=== PATIENT | female | born 1970 | race Caucasian/White ===

== ENCOUNTER 2020-10-02 17:48 | Outpatient (CLI) | payer BC, OTHER, SELFPAY ==
--- NOTE | ~2020-10-02 | MM_ITS ---
EXAMINATION: MM screening gilda BI w irvin HISTORY: Screening mammogram TECHNIQUE: Craniocaudal and mediolateral oblique 3-D tomosynthesis images were obtained and synthetic 2-D images were generated. CAD analysis was submitted and interpreted. COMPARISON: 05/29/2010 BREAST PARENCHYMAL COMPOSITION: There are scattered areas of fibroglandular density. FINDINGS: There is no evidence of suspicious mass, calcification, or architectural distortion to sugg est malignancy in either breast. There has been no suspicious interval change. IMPRESSION: 1. No mammographic evidence of malignancy. 2. Recommend routine screening mammography in one year. BI-RADS Category 1: Negative Reviewed, dictated and finalized at location A.
== END 2020-10-02 17:49 | disposition home or self-care (01) ==
LOC: ANHIMG 17:52
PROVIDERS: PCP Student in an Organized Health Care Education/Training Program; Visit Provider Student in an Organized Health Care Education/Training Program
DX: Z12.31 Encounter for screening mammogram for malignant neoplasm of breast (principal)
CPT/HCPCS: 77063; 77067

== ENCOUNTER 2020-12-14 15:39 | Outpatient (CLI) | payer OTHER, MEDICAID, SELFPAY ==
--- NOTE | ~2020-12-14 | US_ITS ---
EXAMINATION: US abdomen limited EXAM DATE: 12/14/2020 16:38 INDICATION: Elevated liver enzymes. TECHNIQUE: Multiple grayscale and Doppler images of the abdomen right upper quadrant were obtained (constantine y a technologist who performed the scan) and subsequently reviewed. There is no prior study for lisandro tejada. FINDINGS: The pancreatic head and body are normal in appearance. The pancreatic tail is not visualized. The l iver has normal echogenicity and contour. There are no focal liver lesions identified. There is no evidence of intrahepatic biliary duct dilation. Portal venous flow was seen in the hepatopedal, nor mal direction and has normal Doppler waveform. No right-sided hydronephrosis. Common bile duct measures 3 mm, which is normal. The gallbladder fossa is unremarkable. IMPRESSION: Unremarkable abdominal ultrasound exam. Reviewed, dictated and finalized at location A.
--- NOTE | ~2020-12-14 | US_ITS ---
EXAMINATION: US thyroid EXAM DATE: 12/14/2020 16:38 INDICATION: Postoperative hypothyroidism. TECHNIQUE: Multiple grayscale and Doppler images of the thyroid, thyroidectomy bed were obtained (by a technologist who performed the scan) and subsequently reviewed. Individual nodules and recommendat ions may be reported in accordance with TI-RADS system as designated by the 2017 ACR White Paper TI-R ADS committee. There is no prior study for comparison. FINDINGS: The left thyroid lobe measures 2.2 x 1.1 x 0.8 cm, small. This has diffusely heterogeneous and mildly hypervascular echotexture. The right thyroid lobe is not identified. Unremarkable thyroidectomy bed, now mass or lymphadenopathy identified. IMPRESSION: Small, mildly hypervascular left thyroid lobe. Reviewed, dictated and finalized at location A.
== END 2020-12-14 15:40 | disposition home or self-care (01) ==
LOC: ANHIMG 15:45
PROVIDERS: PCP Student in an Organized Health Care Education/Training Program; Visit Provider Student in an Organized Health Care Education/Training Program
DX: E89.0 Postprocedural hypothyroidism (principal); R74.8 Abnormal levels of other serum enzymes
CPT/HCPCS: 76536; 76705

== ENCOUNTER 2022-07-22 12:16 | Emergency (ER) | payer OTHER, MEDICAID, SELFPAY ==
[2022-07-22] VITALS (23 sets, daily range): BP systolic 125–159; BP diastolic 77–136; PULSE 66–78; RESP 16–17; TEMP 36.4; O2SAT 96–100
--- NOTE | 2022-07-22 12:47 | PC.NURSE ---
Dr. Pop at bedside to assess pt.
--- NOTE | 2022-07-22 12:52 | ED.FEMALEGU ---
HPI - Female Genitourinary General Chief complaint: Urogenital-Female Stated complaint: blood in urine, flank pain Time Seen by Provider: 07/22/22 12:20 History of Present Illness HPI Narrative: Patient is a 52-year-old female with a history of hypertension, hyperlipidemia, CAD, COPD presenting with dark urine. Patient states that she was at another ER 2 days ago and she was diagnosed with a kidney stone. She went home with Vicodin, Zofran, Flomax. States that she has been doing well on these. States that she called her doctor today because her urine appeared orange and they advised that she come back to the ER. States that her pain is currently decently controlled and she has not taken a Vicodin yet today. Denies nausea or vomiting. States that she is working on getting an appointment with a urologist but they are waiting for a referral from her PCP. Other than dark urine, she denies complaints. No fevers or chills, chest pain, shortness of breath, abdominal pain, vomiting, diarrhea, dysuria, leg swelling. Related Data Allergies Allergy/AdvReac Type Severity Reaction Status Date / Time trimethobenzamide Allergy Unknown Hives Verified 07/22/22 12:31 Review of Systems Review of Systems: All systems reviewed & are unremarkable except as noted in HPI and below Exam Narrative: GENERAL: Well-appearing, well-nourished, and in no acute distress. HEAD: Normocephalic, atraumatic. EYES: PERRLA and EOMI. ENT: Nares clear, no rhinorrhea or epistaxis. Mucous membranes moist. NECK: Supple. CHEST: Clear to auscultation. No respiratory distress. HEART: Regular rate and rhythm. ABDOMEN: Soft, nontender, nondistended EXTREMITIES: Normal range of motion. No edema. SKIN: Warm, dry, no rash. NEURO: No focal deficits. Alert and oriented x3. PSYCH: Normal mood and affect. Course Vital Signs Vital signs: Vital Signs Temperature 97.5 F L 07/22/22 12:17 Pulse Rate 66 07/22/22 12:17 Respiratory Rate 17 07/22/22 12:17 Blood Pressure 146/87 H 07/22/22 12:17 Pulse Oximetry 100 07/22/22 12:17 Oxygen Delivery Room Air 07/22/22 12:17 Temperature 97.5 F L 07/22/22 12:17 Pulse Rate 78 07/22/22 15:16 Respiratory Rate 16 07/22/22 15:16 Blood Pressure 144/95 H 07/22/22 15:16 Pulse Oximetry 99 07/22/22 15:16 Oxygen Delivery Room Air 07/22/22 12:17 MDM - Female Genitourinary MDM Narrative Medical decision making narrative: Patient is a 52-year-old female presenting with dark urine in the setting of recent kidney stone diagnosis. Patient is a bit hypertensive, otherwise vitals are within normal limits. Exam is unremarkable. No tenderness. States that her pain is decently controlled and she has not had to take a Vicodin yet today. We will check some labs and UA. Blood work is unremarkable. Renal function is normal. UA with greater than 100 RBCs as expected in the setting of a known ureteral calculus. There is no evidence of infection. On reevaluation, the patient is resting comfortably. Discussed the reassuring work-up. Advised that she follow-up as already planned with urology as well as her PCP. Patient will also follow-up with a liver specialist regarding her transaminitis that was noted several days ago and appears to be stable. Appropriate return precautions given. Discharged in stable condition. Differential Diagnosis Differential diagnosis: Likely urinary tract infection, cystitis and other (ureterolithiasis ) Medical Records Attestation: I reviewed the patient's medical records. Lab Data Attestation: I reviewed the patient's lab results. 07/22/22 12:47 07/22/22 12:47 Labs: Lab Results 07/22/22 Range/Units 12:47 WBC 6.4 (4.5-10.0) K/mm3 RBC 4.86 (4.2-5.4) M/mm3 Hgb 14.4 (12.0-15.0) g/dL Hct 43.4 (37.0-47.0) % MCV 89.3 (80-100) fl MCH 29.6 (26-34) pg MCHC 33.2 (32-36) g/dl RDW 13.8 (11.5-14.5) % Plt Count 214 (150-375)
[2022-07-22 12:56] LABS: Basophils Absolute Auto 0.1 K/mm3 (0.0-0.1); Basophils Percent Auto 1.1 % (0.2-1.2); Eosinophils Absolute Auto 0.4 K/mm3 (0-0.3); Eosinophils Percent Auto 6.3 % (0-4.4); Hematocrit 43.4 % (37.0-47.0); Hemoglobin 14.4 g/dL (12.0-15.0); Immature Granulocyte Absolute 0.02 K/mm3 (0.00-0.031); Immature Granulocyte Percent A 0.3 % (0-0.5); Lymphocytes Absolute Auto 1.63 K/mm3 (0.9-3.2); Lymphocytes Percent Auto 25.6 % (18.3-44.2); Mean Corpuscular HGB Conc 33.2 g/dl (32-36); Mean Corpuscular Hemoglobin 29.6 pg (26-34); Mean Corpuscular Volume 89.3 fl (80-100); Mean Platelet Volume 10.1 fl (7.4-10.4); Monocytes Absolute Auto 0.6 K/mm3 (0.1-0.6); Monocytes Percent Auto 9.1 % (2.6-8.5); Neutrophils Absolute Auto 3.7 K/mm3 (1.3-6.7); Neutrophils Percent Auto 57.6 % (45.5-73.1); Platelet Count Result 214 k/mm3 (150-375); Red Blood Count 4.86 M/mm3 (4.2-5.4); Red Cell Distribution Width 13.8 % (11.5-14.5); White Blood Count 6.4 K/mm3 (4.5-10.0)
[2022-07-22 13:03] LABS: Appearance Urine Clear (Clear); Bacteria Urine None Seen /hpf; Bilirubin Urine Negative (Negative); Blood Urine 3+ (Negative); Color Urine Yellow (Yellow); Glucose Urine UA Negative (Negative); Ketones Urine Negative (Negative); Leukocyte Esterase Ur Trace LEU/UL (Negative); Nitrate Urine Negative (Negative); Non Pathogenic Casts 0-2; Protein Urine Negative (Negative); RBC Urine >100 /hpf (0-2); Specific Grav Ur 1.008 (1.001-1.035); Squamous Epithelial Cell Urine None seen /hpf (Few); Urobilinogen Urine 0.2 mg/dL (<2.0); WBC Urine 0-5 /hpf; pH Urine 5.5 (5.0-9.0)
[2022-07-22 13:05] LABS: Alanine Aminotransferase 470 U/L (6-35); Albumin Level 4.3 g/dL (3.5-5.1); Alkaline Phosphatase 166 U/L (38-126); Anion Gap 6 mmol/L (8-16); Aspartate Amino Transferase 559 U/L (14-36); Blood Urea Nitrogen 14 mg/dL (7-17); Calcium 9.1 mg/dL (8.4-10.2); Carbon Dioxide 27 mmol/L (22-30); Chloride 103 mmol/L (98-107); Estimated CRCL calculation 66 ml/min; Estimated Glomerular Filt Rate 58; Glucose 85 mg/dL (65-110); Potassium 4.1 mmol/L (3.4-5.0); Sodium 136 mmol/L (137-145)
[2022-07-22 13:09] LABS: Add Urine Microscopic? YES
[2022-07-22] MEDS: MORPHINE SULFATE (*CRX) 4 MG/ML INJ IV PUSH (13:14)
[2022-07-22] MEDS: SODIUM CHLORIDE 0.9% IV 1,000 ML 999 ML IV CONT ×2 (13:14)
== END 2022-07-22 15:30 | disposition home or self-care (01) ==
PROVIDERS: Emergency Provider Emergency Medicine; PCP Student in an Organized Health Care Education/Training Program
DX: N20.1 Calculus of ureter (principal); I25.10 Atherosclerotic heart disease of native coronary artery without angina pectoris; I10 Essential (primary) hypertension; J44.9 Chronic obstructive pulmonary disease, unspecified; E78.5 Hyperlipidemia, unspecified
CPT/HCPCS: 36415; 80053; 81001; 85025; 96361; 96374; 99284; J2270; J7030

== ENCOUNTER 2022-09-24 23:12 | Observation (INO) | payer OTHER, MEDICAID, SELFPAY ==
--- NOTE | 2022-09-24 | ECG_ITS ---
Measurements Intervals [place] Rate: 57 P: 42 SC: 172 QRS: -21 QRSD: 90 T: 22 QT: 428 QTc: 417 Interpretive Statements SINUS BRADYCARDIA VOLTAGE CRITERIA FOR LVH [MEETS CRITERIA IN ONE OF: R(aVL), S(V1), R(V5), R(V5/V6)+S(V1)] POOR R-WAVE PROGRESSION ABNORMAL ECG NO PREVIOUS ECG AVAILABLE FOR COMPARISON Electronically Signed On 09-25-2022 13:14:00 CDT by Hector Cantu M.D.
--- NOTE | ~2022-09-24 | XR_ITS ---
EXAMINATION: XR chest 1V portable DATE: 09/24/2022 23:47 INDICATION: Chest pain. TECHNIQUE: A single frontal view of the chest was obtained. COMPARISON: Chest 2 views 01/08/2018 FINDINGS: There is no pneumonia, pleural effusion, or pneumothorax. The heart size is normal. A forei gn body that is likely an implant overlies the heart. IMPRESSION: 1. No acute cardiopulmonary disease. Reviewed, dictated and finalized at location A.
[2022-09-24 23:13] VITALS: BP 124/68; PULSE 59; RESP 15; TEMP 36.5; O2SAT 100
[2022-09-24 23:31] VITALS: BP 110/73; PULSE 61; RESP 18; O2SAT 100
[2022-09-24] MEDS: NITROGLYCERIN SL 0.4 MG TABLET SUBLINGUAL (23:43)
[2022-09-24 23:56] LABS: Basophils Absolute Auto 0.1 K/mm3 (0.0-0.1); Basophils Percent Auto 0.7 % (0.2-1.2); Eosinophils Absolute Auto 0.6 K/mm3 (0-0.3); Eosinophils Percent Auto 5.9 % (0-4.4); Hematocrit 39.4 % (37.0-47.0); Hemoglobin 13.3 g/dL (12.0-15.0); Immature Granulocyte Absolute 0.04 K/mm3 (0.00-0.031); Immature Granulocyte Percent A 0.4 % (0-0.5); Lymphocytes Absolute Auto 2.33 K/mm3 (0.9-3.2); Lymphocytes Percent Auto 22.4 % (18.3-44.2); Mean Corpuscular HGB Conc 33.8 g/dl (32-36); Mean Corpuscular Hemoglobin 31.3 pg (26-34); Mean Corpuscular Volume 92.7 fl (80-100); Mean Platelet Volume 9.8 fl (7.4-10.4); Monocytes Percent Auto 9.8 % (2.6-8.5); Neutrophils Absolute Auto 6.4 K/mm3 (1.3-6.7); Neutrophils Percent Auto 60.8 % (45.5-73.1); Platelet Count Result 219 k/mm3 (150-375); Red Blood Count 4.25 M/mm3 (4.2-5.4); Red Cell Distribution Width 12.9 % (11.5-14.5); White Blood Count 10.4 K/mm3 (4.5-10.0)
[2022-09-25] VITALS (13 sets, daily range): BP systolic 106–126; BP diastolic 57–81; PULSE 48–60; RESP 13–20; TEMP 36.6–36.7; O2SAT 97–100; BMI 36.3
[2022-09-25 00:05] LABS: Lipase 83 U/L (23-300); Magnesium 1.9 mg/dL (1.6-2.3)
[2022-09-25 00:06] LABS: Alanine Aminotransferase 50 U/L (6-35); Albumin Level 3.6 g/dL (3.5-5.1); Alkaline Phosphatase 85 U/L (38-126); Anion Gap 1 mmol/L (8-16); Aspartate Amino Transferase 83 U/L (14-36); Bilirubin,Total 0.9 mg/dL (0.2-1.3); Blood Urea Nitrogen 13 mg/dL (7-17); Carbon Dioxide 28 mmol/L (22-30); Chloride 103 mmol/L (98-107); Estimated CRCL calculation 71 ml/min; Estimated Glomerular Filt Rate > 60; Glucose 92 mg/dL (65-110); Potassium 3.4 mmol/L (3.4-5.0); Sodium 132 mmol/L (137-145)
[2022-09-25 00:13] LABS: INR 1.1; Prothrombin Time 14.7 Seconds (11.1-14.7)
[2022-09-25 00:18] LABS: NT Pro B Type Natriuretic Pept 120 pg/mL (19.9-100); Troponin I < 0.012 ng/mL (0.000-0.034)
--- NOTE | 2022-09-25 00:50 | ED.GENADULT ---
HPI - General Adult General Chief complaint: Syncope Stated complaint: CP/SYNCOPE Time Seen by Provider: 09/24/22 23:20 History of Present Illness HPI narrative: Patient is a 52-year-old female who presents the emergency department with chief complaint of chest pain and syncope. Patient reports that she has history of syncopal episodes and has a loop recorder also has history of cardiac disease and has had recent stents done both these have been done at [facility]. Patient reports that tonight she had an episode of chest discomfort felt lightheaded and had a brief syncopal episode patient reports that she did desirae a event with her loop recorder. Patient reports that she is feeling a little better now but still has some discomfort in her chest Related Data Allergies Allergy/AdvReac Type Severity Reaction Status Date / Time trimethobenzamide Allergy Unknown Hives Verified 09/24/22 23:21 Review of Systems Review of Systems: A 10 system review of systems was completed on the patient and is negative except for what is stated in the HPI. Nursing and ancillary documentation was reviewed. Exam Narrative: GENERAL: Well-appearing, well-nourished, and in no acute distress. HEAD: Normocephalic, atraumatic. EYES: PERRLA and EOMI. ENT: Nares clear, no rhinorrhea or epistaxis. Mucous membranes moist. NECK: Supple. CHEST: Clear to auscultation. No respiratory distress. HEART: Regular rate and rhythm. No murmur heard. Normal peripheral pulses. ABDOMEN: Soft, nontender, nondistended, normal active bowel sounds. EXTREMITIES: Normal range of motion. No edema. SKIN: Warm, dry, no rash. NEURO: No focal deficits. Alert and oriented x3. PSYCH: Normal mood and affect. Course Vital Signs Vital signs: Vital Signs Temperature 36.5 C 09/24/22 23:13 Pulse Rate 59 L 09/24/22 23:13 Respiratory Rate 15 09/24/22 23:13 Blood Pressure 124/68 09/24/22 23:13 Pulse Oximetry 100 09/24/22 23:13 Oxygen Delivery Room Air 09/24/22 23:13 Temperature 36.5 C 09/24/22 23:13 Pulse Rate 58 L 09/25/22 01:59 Respiratory Rate 16 09/25/22 01:59 Blood Pressure 123/69 09/25/22 01:59 Pulse Oximetry 99 09/25/22 01:59 Oxygen Delivery Room Air 09/24/22 23:13 Medical Decision Making MDM Narrative Medical decision making narrative: Differential diagnosis includes ACS, dysrhythmia, Laboratory studies were obtained and the patient which showed a white count of 10.4 electrolytes are within normal limits initial troponin is less than 0.012 BNP was 120 Patient's loop recorder was interrogated that showed no dysrhythmia Due to the patient's heart score being elevated the patient was admitted for observation and serial cardiac markers Vital Signs Vital Signs: Vital Signs Temperature 36.5 C 09/24/22 23:13 Pulse Rate 59 L 09/24/22 23:13 Respiratory Rate 15 09/24/22 23:13 Blood Pressure 124/68 09/24/22 23:13 Pulse Oximetry 100 09/24/22 23:13 Oxygen Delivery Room Air 09/24/22 23:13 Temperature 36.5 C 09/24/22 23:13 Pulse Rate 58 L 09/25/22 01:59 Respiratory Rate 16 09/25/22 01:59 Blood Pressure 123/69 09/25/22 01:59 Pulse Oximetry 99 09/25/22 01:59 Oxygen Delivery Room Air 09/24/22 23:13 Lab Data 09/24/22 23:49 09/24/22 23:49 Labs: Lab Results 09/24/22 09/25/22 Range/Units 23:49 02:33 WBC 10.4 H (4.5-10.0) K/mm3 RBC 4.25 (4.2-5.4) M/mm3 Hgb 13.3 (12.0-15.0) g/dL Hct 39.4 (37.0-47.0) % MCV 92.7 (80-100) fl MCH 31.3 (26-34) pg MCHC 33.8 (32-36) g/dl RDW 12.9 (11.5-14.5) % Plt Count 219 (150-375) k/mm3 MPV 9.8 (7.4-10.4) fl Immature Gran % (Auto) 0.4 (0-0.5) % Neut % (Auto) 60.8 (45.5-73.1) % Lymph % (Auto) 22.4 (18.3-44.2) % Door % (Auto) 9.8 H (2.6-8.5) % Eos % (Auto) 5.9 H (0-4.4) % Baso % (Auto) 0.7 (0.2-1.2) % Lymph # (Auto) 2.33 (0.9-3.2) K/mm3
--- NOTE | 2022-09-25 01:59 | PC.NURSE ---
Pt ambulated around the nurses station without any difficulty.
[2022-09-25 03:03] LABS: Troponin I < 0.012 ng/mL (0.000-0.034)
--- NOTE | 2022-09-25 05:21 | ADMGEN ---
This patient, Faby Bryson, was admitted to IMU Room 201-01. Patient/family oriented to hospital policies and general routines including ID bracelet, bed and alarms, visiting hours, pain management, procedures, bathroom and other care routines, personal items, smoking policy, room service/diet, and visiting hours. Information on how to activate the Rapid Response Team has been discussed. Patient/Family are encouraged to report perceived risks to care and to ask questions if they do not understand what they are told or what they should do.
[2022-09-25 10:21] LABS: Troponin I < 0.012 ng/mL (0.000-0.034)
[2022-09-25] MEDS: ISOSORBIDE MONONITRATE 30 MG TAB.ER.24H PO (11:05)
[2022-09-25] MEDS: ASPIRIN 81 MG ENTERIC TABLET PO (11:05)
[2022-09-25] MEDS: FLUoxetine HCL 20 MG CAPSULE 40 MG PO (11:05)
[2022-09-25] MEDS: FUROSEMIDE 20 MG TABLET PO (11:05)
[2022-09-25] MEDS: POTASSIUM CHLORIDE 20 MEQ ER TABLET PO (11:05)
[2022-09-25] MEDS: CLOPIDOGREL BISULFATE 75 MG TABLET PO (11:05)
[2022-09-25] MEDS: LEVOTHYROXINE SODIUM 150 MCG TABLET PO (11:06)
--- NOTE | 2022-09-25 11:24 | PM.CNCAR ---
Assessment and Plan Assessment and plan (1) Syncope and collapse: Code(s): R55 - Syncope and collapse Status: Acute Assessment and Plan: All etiology remains unclear, symptoms suggestive of prodrome and vasovagal etiology possible orthostasis. Patient reports documentation of orthostatic hypotension in the past although this has yet to be assessed this hospitalization. I have requested orthostatic vital signs are documented prior to discharge. She is on medications including isosorbide mononitrate and metoprolol which can certainly contribute to symptomatic orthostasis yet appear to have been utilized for cardiovascular risk reduction and antianginal benefit. As such, unless she has significant orthostatic will continue these medications without change. She has been counseled to rise slowly from seated position to avoid risk for falls and injuries. She will follow-up with her deli manager as soon as possible for discharge over the next 1-2 weeks. Loop recorder interrogation does not reveal significant tachy or bradyarrhythmia as an explanation for her single episode prior to admission. She has been advised to avoid intravascular volume depletion, rise slowly from seated position. Continue loop recorder checks per her deli manager. She has had prior extensive outpatient workup for these episodes. We will defer further management workup to her treating physicians as an outpatient. Further evaluation for possible infectious etiology per primary service. At this time patient is hemodynamically stable without evidence of acute myocardial infarction, clinical symptoms or deficits suggestive of CVA, or contributing arrhythmia as explanation. I would consider discontinuation of furosemide 20 mg daily to minimize risk for intravascular volume depletion and contribute to orthostatic symptoms and or syncope. (2) CAD (coronary artery disease): Qualifiers: Coronary Disease-Associated Artery/Lesion type: [place] artery [place] vs. transplanted heart: [place] heart Associated angina: with stable angina Qualified Code(s): I25.118 - Atherosclerotic heart disease of [place] coronary artery with other forms of angina pectoris Code(s): I25.10 - Atherosclerotic heart disease of [place] coronary artery without angina pectoris Status: Acute Assessment and Plan: Patient reports of recent myocardial infarction June 2022. Continue dual antiplatelet therapy with aspirin 81 mg daily clopidogrel 75 mg daily without missing a single dose as directed. Continue rosuvastatin 20 mg bedtime for goal LDL less than 70. Continue aggressive risk factor modification clearly lifestyle modification, cardiac rehabilitation, diet exercise. (3) Chest pain: Qualifiers: Chest pain type: other chest pain Qualified Code(s): R07.89 - Other chest pain Code(s): R07.9 - Chest pain, unspecified Status: Acute Assessment and Plan: Chest pain somewhat atypical other constant she describes although she gives conflicting description of this is completely different than her symptoms associated with myocardial infarction he reports response nitroglycerin to different forms of chest pain. Nonetheless, she has ruled out for myocardial infarction without acute ischemic ECG changes noted above. It appears she has atypical chest pain syndrome as well possibly musculoskeletal and or GI related. She reports she is at her baseline symptomatology at this time. I will make no further adjustments to her antianginal regimen and will continue metoprolol 12.5 mg daily, Imdur 30 mg daily, and ranolazine 1000 mg twice daily. There is no indication for repeat ischemic evaluation at this time and certainly no indication for invasive angiography given normal serial troponin, unremarkable ECG and atypical baseline chronic chest discomfort as she describes. We discussed this at length. Patient and her verbalized understanding. Patient states s
--- NOTE | 2022-09-25 11:26 | PM.SD2 ---
Same Day Admit/Disch: HPI History of Present Illness Chief complaint: Chest Pain, Syncope Narrative: Patient is a 52-year-old female who presents the emergency department with chief complaint of chest pain and syncope.? Patient reports that she has history of syncopal episodes and has a loop recorder. also has history of cardiac disease and has had recent stents done. both these have been done at [facility].? Patient reports that last night she had an episode of chest discomfort felt lightheaded and had a brief syncopal episode patient reports that she did desirae a event with her loop recorder.? At present patient is asymptomatic. Troponins have been negative. EKG shows sinus bradycardia. The patient is on Toprol-XL which could be causing sinus bradycardia and recurrent syncope. Patient follows up with science teacher at [facility] and has been advised to follow-up with them regarding medication changes. She is currently stable and is being discharged [facility] Family History Family History Other Acute myocardial infarction Asthma Cerebrovascular accident Chronic obstructive pulmonary disease Congestive heart failure Diabetes mellitus Hypertension Social History Social History Smoking status: Never smoker Alcohol intake: former Substance use type: other Other substance usage details: gummies Lack of Transportation: No Lack of Food: Never True Current Housing: I Have Housing Concerned About Future Housing: No Difficulty Paying Gas/Electric Bills: No Difficulty Paying for Meds: No Currently Unemployed: No Education: Master's Degree or Higher Difficulty w/ Childcare or Family Care: No Spiritual care concerns: No Same Day Admit/Disch: Med Pre-admit Medications Home Medications Medication Instructions Recorded Confirmed Type aspirin 81 mg tablet,delayed 81 mg PO DAILY 09/25/22 09/25/22 History release budesonide-formoterol HFA 160 2 puff inhalation BID 09/25/22 09/25/22 History mcg-4.5 mcg/actuation aerosol inhaler (Symbicort) clopidogrel 75 mg tablet 75 mg PO DAILY 09/25/22 09/25/22 History colestipol 1 gram tablet 2 g PO BID 09/25/22 09/25/22 History fluoxetine 40 mg capsule 40 mg PO DAILY 09/25/22 09/25/22 History furosemide 20 mg tablet 20 mg PO DAILY 09/25/22 09/25/22 History isosorbide mononitrate 30 mg 30 mg PO DAILY 09/25/22 09/25/22 History tablet,extended release 24 hr levothyroxine 150 mcg tablet 150 mcg PO DAILY 09/25/22 09/25/22 History (Synthroid) metoprolol succinate 25 mg 12.5 mg PO DAILY 09/25/22 09/25/22 History tablet,extended release 24 hr nitroglycerin 0.4 mg sublingual 0.4 mg sublingual PRN 09/25/22 09/25/22 History tablet ondansetron 4 mg disintegrating 4 mg PO PRN 09/25/22 09/25/22 History tablet potassium chloride 20 mEq 20 meq PO DAILY 09/25/22 09/25/22 History tablet,extended release(part/cryst) ranolazine 1,000 mg 1,000 mg PO BID 09/25/22 09/25/22 History tablet,extended release,12 hr ropinirole 0.25 mg tablet 0.25 mg PO HS 09/25/22 09/25/22 History rosuvastatin 20 mg tablet 20 mg PO HS 09/25/22 09/25/22 History ursodiol 500 mg tablet 500 mg PO BID 09/25/22 09/25/22 History Review of Systems Review of Systems A 10 system review of systems was completed on the patient and is negative except for what is stated in the HPI. Nursing and ancillary documentation was reviewed. Exam Narrative: GENERAL: Well-appearing, well-nourished, and in no acute distress. HEAD: Normocephalic, atraumatic. EYES: PERRLA and EOMI. ENT: Nares clear, no rhinorrhea or epistaxis. Mucous membranes moist. NECK: Supple. CHEST: Clear to auscultation. No respiratory distress. HEART: Regular rate and rhythm. No murmur heard. Normal peripheral pulses. ABDOMEN: Soft, nontender, nondistended, normal active bowel sounds. EXTREMITI
== END 2022-09-25 13:22 | disposition home or self-care (01) ==
LOC: ANHED 09-25 04:15 → ANHIMU 09-25 04:44
PROVIDERS: Admitting Provider Hospitalist; Emergency Provider Emergency Medicine; PCP Student in an Organized Health Care Education/Training Program; Visit Provider Hospitalist
DX: R07.9 Chest pain, unspecified (principal); R55 Syncope and collapse; Z95.818 Presence of other cardiac implants and grafts; I25.118 Atherosclerotic heart disease of native coronary artery with other forms of angina pectoris; Z95.5 Presence of coronary angioplasty implant and graft; R00.1 Bradycardia, unspecified; R94.31 Abnormal electrocardiogram [ECG] [EKG]; I10 Essential (primary) hypertension; I25.2 Old myocardial infarction; D72.829 Elevated white blood cell count, unspecified; R79.89 Other specified abnormal findings of blood chemistry; E78.2 Mixed hyperlipidemia; E03.9 Hypothyroidism, unspecified; Z79.82 Long term (current) use of aspirin; Z79.02 Long term (current) use of antithrombotics/antiplatelets; Z79.899 Other long term (current) drug therapy
CPT/HCPCS: 36415; 71045; 80053; 83690; 83735; 83880; 84484; 85025; 85610; 85730; 93005; 99285; A9270; G0378